=== PATIENT | female | born 2000 | race American Indian/Alaskan Native ===

== ENCOUNTER 2020-10-27 18:53 | Emergency (ER) | payer SELFPAY ==
[2020-10-27 19:11] VITALS: BP 115/69
[2020-10-27 20:15] LABS: Bilirubin,Urine NEG (Negative); Blood,Urine NEG (Negative); Color,Urine Straw (Yellow); Mucus,Urine FEW /HPF; Protein,Urine <15 mg/dL mg/dL (Negative); Urobilinogen,Urine < 2.0 mg/dL (<2.0)
[2020-10-27 20:16] LABS: HCG Qualitative,Urine Negative (Negative)
--- NOTE | 2020-10-27 22:41 | Emergency Department Report ---
ED Female HPI - General Chief complaint: Urogenital-Female Stated complaint: UTI Source: patient Mode of arrival: Ambulatory Limitations: No Limitations - History of Present Illness Initial comments: Patient is a A1 20 yo AA female with no past medical history who presents to the ED with c/o acute onset persistent dysuria, vaginal pain and irritation, vaginal discharge for the last 2 days. Patient admits to being sexually active with no protection. Patient also states that the pain is worse with urination. Patient denies vaginal bleeding, dyspareunia, abdominal pain, nausea, vomiting, diarrhea or low back pain, chest pain, dyspnea, sore throat or fever and chills. MD Complaint: vaginal discharge, dysuria, other (vaginal pain and irritation) -: Sudden, days(s) (2) Location: labia Radiation: non-radiating Severity: mild Severity scale (0 -10): 3 Quality: dull, burning Consistency: constant Improves with: urination Worsens with: urination Are you Now?: No Associated Symptoms: denies other symptoms, vaginal discharge, dysuria. denies: vaginal bleeding, abdominal pain, nausea/vomiting, fever/chills, headaches, loss of appetite, hematuria, rash, seizure, shortness of breath, syncope, weakness - Related Data Sexually active: Yes : 1 Para: 0 A: 1 Previous Rx's Medication Instructions Recorded Last Taken Type Ibuprofen [Motrin] 400 mg PO Q8H PRN #20 tablet 10/27/20 Unknown Rx Phenazopyridine [Pyridium] 100 mg PO TID #15 tab 10/27/20 Unknown Rx metroNIDAZOLE [Flagyl] 500 mg PO Q12HR #14 tab 10/27/20 Unknown Rx ED Review of Systems ROS: Stated complaint: UTI Other details as noted in HPI Constitutional: denies: chills, fever Eyes: denies: eye pain, eye discharge, vision change ENT: denies: ear pain, throat pain Respiratory: denies: cough, shortness of breath, wheezing Cardiovascular: denies: chest pain, palpitations Endocrine: no symptoms reported Gastrointestinal: denies: abdominal pain, nausea, diarrhea Genitourinary: urgency, dysuria, frequency, discharge Musculoskeletal: denies: back pain, joint swelling, arthralgia Skin: denies: rash, lesions Neurological: denies: headache, weakness, paresthesias Psychiatric: denies: anxiety, depression Hematological/Lymphatic: denies: easy bleeding, easy bruising ED Past Medical Hx - Social History Smoking Status: Never Smoker Substance Use Type: None - Medications Home Medications: Home Medications Medication Instructions Recorded Confirmed Last Taken Type Ibuprofen [Motrin] 400 mg PO Q8H PRN #20 tablet 10/27/20 Unknown Rx Phenazopyridine [Pyridium] 100 mg PO TID #15 tab 10/27/20 Unknown Rx metroNIDAZOLE [Flagyl] 500 mg PO Q12HR #14 tab 10/27/20 Unknown Rx ED Physical Exam - General Limitations: No Limitations General appearance: alert, in no apparent distress - Head Head exam: Present: atraumatic, normocephalic, normal inspection - Eye Eye exam: Present: normal appearance, PERRL, EOMI Pupils: Present: normal accommodation - ENT ENT exam: Present: normal exam, normal orophraynx, mucous membranes moist, TM's normal bilaterally, normal external ear exam - Neck Neck exam: Present: normal inspection, full ROM - Respiratory Respiratory exam: Present: normal lung sounds bilaterally. Absent: respiratory distress, wheezes, rales, stridor, chest wall tenderness, accessory muscle use, decreased breath sounds, prolonged expiratory - Cardiovascular Cardiovascular Exam: Present: regular rate, normal rhythm, normal heart sounds. Absent: systolic murmur, diastolic murmur, rubs, gallop - GI/Abdominal GI/Abdominal exam: Present: soft, normal bowel sounds. Absent: tenderness, guarding, rebound, hyperactive bowel sounds, hypoactive bowel sounds, organomegaly - Bi-manual exam: Present: other (Pelvic exam deferred, patient declined) - Extremities Exam Extremities exam: Present: normal inspection, full ROM, normal capillary refill - Back Exam Back exam: Present: normal inspection, full ROM. Absent: tenderness, CVA tenderness (R), CVA tenderness (L), muscle spasm, paraspinal tenderness, vertebral tenderness - Neurological Exam Neurological exam: Present: alert, oriented X3, CN II-XII intact, normal gait, reflexes normal - Psychiatric Psychiatric exam: Present: normal affect, normal mood, anxious - Skin Skin exam: Present: warm, dry, intact, normal color. Absent: rash ED Course Vital Signs 10/27/20 19:09 Temperature 98.5 F Pulse Rate 78 Respiratory 18 Rate Blood Pressure 115/69 O2 Sat by Pulse 99 Oximetry ED Medical Decision Making - Medical Decision Making This is a A1 20 yo AA female with no past medical history who presents to the ED with c/o acute onset persistent dysuria, vaginal pain and irritation, vaginal discharge for the last 2 days. Patient admits to being sexually active with no protection. Patient also states that the pain is worse with urination. In the ED, patient is alert and oriented x 3 and is in no acute distress. Urinalysis test is nonactionable. Wet prep test was positive for Gadnerella vaginalis. Patient was discharged home on medications and advised to follow up with her [employer] physician in 5-7 days for reevaluation. Patient was advised to return to the ED immediately if symptoms get worse. - Differential Diagnosis Bacterial vaginosis; STD; UTI; Trichomonas; Candidiasis Critical care attestation.: If time is entered above; I have spent that time in minutes in the direct care of this critically ill patient, excluding procedure time. ED Disposition Clinical Impression: Vaginal irritation, Bacterial vaginosis, Dysuria Disposition: TO HOME OR SELFCARE Is pt being admited?: No Does the pt Need Aspirin: No Condition: Stable Instructions: Bacterial Vaginosis (ED), Bacterial Vaginosis, [id number], Vaginitis Additional Instructions: Take medication with food, drink plenty of fluids and follow up with your Primary care physician in 7-10 days. Return to the ED immediately if symptoms get worse Prescriptions: metroNIDAZOLE [Flagyl] 500 mg PO Q12HR #14 tab Ibuprofen [Motrin] 400 mg PO Q8H PRN #20 tablet PRN Reason: Pain , Severe (7-10) Phenazopyridine [Pyridium] 100 mg PO TID #15 tab Referrals: [facility] [Provider Group] - 3-5 Days Forms: STI Treatment and Prevention Time of Disposition: 22:55 Print Language: SYRIAN
== END 2020-10-27 23:00 | disposition home or self-care (01) ==
LOC: ED 18:53
DX: N76.0 Acute vaginitis (principal); B96.89 Other specified bacterial agents as the cause of diseases classified elsewhere; R30.0 Dysuria; Z79.899 Other long term (current) drug therapy
CPT/HCPCS: 81001; 81025; 87210; 99283